=== PATIENT | male | born 1970 | race Caucasian/White ===

== ENCOUNTER 2016-09-22 08:53 | Emergency (ER) | payer OTHER ==
[~2016-09-22] VITALS: Ht 177.8 cm; Wt 93.8 kg
[~2016-09-22 08:53] MED LIST: CETITAB27 PO; CHOL1000 PO; FLM4 PO; FLUT0.0529 NAE
[2016-09-22 08:58] VITALS: TEMP 36.9; Ht 177.8 cm; Wt 93.8 kg
--- NOTE | 2016-09-22 09:30 | EMERGENCY ROOM VISIT NOTE ---
History Report prepared by Dee: Anh Barclay Under the Supervision of: Dr. Cedric Valladarse M.D. First contact with patient: 09:04 Chief Complaint: BLEEDING Stated Complaint: BLEEDING History of Present Illness The patient is a 46 year old male who presents to the Emergency Room with complaints of worsening rectal bleeding for the past week. The patient saw his PCP, Dr. Kaiser, yesterday for these symptoms and had an exam. Per patient, Dr. Kaiser was unable to determine the site of the bleeding. The patient describes the blood as red and he denies any melena. This morning, while he was standing in the shower he states that the blood was "just dripping out" and he was passing clots of blood as well. He was unable to get dressed this morning because he was bleeding so much. The patient denies rectal pain, abdominal pain , and any dizziness. Two years ago he had some rectal bleeding. He had a colonoscopy at that time which revealed polyps. The patient also reports that for the past few weeks he has had some shortness of breath and his chest has felt bloated. His PCP did an ECG and a CXR yesterday. Source of History: patient, spouse/significant other Onset: the past week Position: other (rectum) Symptom Intensity: Quality: other (bleeding) Timing: worsening Associated Symptoms: + chest pain, + SOB, + hematochezia, No abdominal pain , No melena Review of Systems All systems have been listed, reviewed, and are negative other than those previously mentioned. Please see Additional Medical History Sheet. 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[place] (4) Vitamin D deficiency Surgical Problems: (1) Hx of tonsillectomy (2) S/P hernia repair (3) S/P nasal surgery Family History No significant family history Social History Smoking Status: Never Smoker Alcohol Use: none Drug Use: none Marital Status: Housing Status: lives with significant other Occupation Status: employed Current/Historical Medications Scheduled Cetirizine/Pseudoephedrine (Zyrtec-D Er 5MG/120MG), 1 TAB PO DAILY Fluticasone Propionate (Nasal) (Flonase Allergy Relief), 2 SPRAYS ALEX DAILY Hydrocortisone Acetate (Anucort-Hc), 25 MG OR BID Potassium Citrate (Alkalinizer (Potassium Citrate ER), 1,080 MG PO BID Allergies Coded Allergies: Penicillins (Verified Allergy, Severe, ROCEPHIN OK PER DR HOLLAND, 09/22/16) HIVES had ancef 10/26/15 no reaction Dust (Unverified Allergy, Mild, UNKNOWN, 09/22/16) Cat Dander (Verified Allergy, Unknown, CATS, 09/22/16) Dog Dander (Verified Allergy, Unknown, DOGS, 09/22/16) Physical Exam Vital Signs Date Time Temp Pulse Resp B/P (MAP) Pulse Ox O2 Delivery O2 Flow Rate FiO2 09/22/16 11:10 78 121/84 97 09/22/16 09:31 88 118/79 88 133/88 93 145/91 09/22/16 08:58 36.9 97 18 130/92 96 Room Air Physical Exam GENERAL: Patient awake, alert, oriented x 3. Patient follows commands. Patient does not appear toxic. Patient is adequately hydrated and well- nourished. SKIN: No erythema, pallor, cyanosis or rash HEENT: Normal head, pupils equal, reactive to light and accommodation. Oral cavity and posterior pharynx appear normal. Neck: Without adenopathy, no neck vein distention. LUNGS: Clear to auscultation. No wheezes, no rales, no rhonchi. HEART: No murmurs. No gallops. No rubs ABDOMEN: No masses, no rebound, no hepatomegaly or splenomegaly. Small subumbilical scar from previous herniotomy. RECTAL: Small mass at the anus consistent with possible external hemorrhoid vs rectal prolapse. Rectal exam is minimally guaiac positive. EXTREMITIES: No signs of trauma or infection. NEUROLOGIC: Cranial nerves II-XII within normal limits. No gross motor sensory function deficits. Medical Decision & Procedures ER Provider Diagnostic Interpretation: Radiology results as stated below per my review and radiologist interpretation: CHEST 2 VIEWS ROUTINE HISTORY: Short of breath. COMPARISON: Chest 10/26/2015. FINDINGS: Small nodular density at the left lung base favors a nipple shadow. No pleural effusions. No pneumothorax. The heart is normal in size. No focal lung consolidations to suggest pneumonia. No evidence for pulmonary edema. IMPRESSION: No acute process. Electronically signed by: Torey Vargas M.D. 09/22/2016 10:59 AM Dictated Date/Time: 09/22/2016 10:57 AM Laboratory Results 09/22/16 09:25 Red Blood Count 5.20, Mean Corpuscular Volume 82.7, Mean Corpuscular Hemoglobin 29.8, Mean Corpuscular Hemoglobin Concent 36.0, Mean Platelet Volume 8.9, Neutrophils (%) (Auto) 61.7, Lymphocytes (%) (Auto) 27.8, Monocytes (%) (Auto) 7.2, Eosinophils (%) (Auto) 2.1, Basophils (%) (Auto) 0.5, Neutrophils # (Auto) 3.53, Lymphocytes # (Auto) 1.59, Monocytes # (Auto) 0.41, Eosinophils # (Auto) 0.12, Basophils # (Auto) 0.03 09/22/16 09:25 Test 09/22/16 09:25 White Blood Count 5.72 K/uL (4.8-10.8) Red Blood Count 5.20 M/uL (4.7-6.1) Hemoglobin 15.5 g/dL (14.0-18.0) Hematocrit 43.0 % (42-52) Mean Corpuscular Volume 82.7 fL (80-100) Mean Corpuscular Hemoglobin 29.8 pg (25-34) Mean Corpuscular Hemoglobin Concent 36.0 g/dl (32-36) Platelet Count 211 K/uL (130-400) Mean Platelet Volume 8.9 fL (7.4-10.4) Neutrophils (%) (Auto) 61.7 % Lymphocytes (%) (Auto) 27.8 % Monocytes (%) (Auto) 7.2 % Eosinophils (%) (Auto) 2.1 % Basophils (%) (Auto) 0.5 % Neutrophils # (Auto) 3.53 K/uL (1.4-6.5) Lymphocytes # (Auto) 1.59 K/uL (1.2-3.4) Monocytes # (Auto) 0.41 K/uL (0.11-0.59) Eosinophils # (Auto) 0.12 K/uL (0-0.5) Basophils # (Auto) 0.03 K/uL (0-0.2) RDW Standard Deviation 39.8 fL (36.4-46.3) RDW Coefficient of Variation 13.2 % (11.5-14.5) Immature Granulocyte % (Auto) 0.7 % Immature Granulocyte # (Auto) 0.04 K/uL (0.00-0.02) Anion Gap 8.0 mmol/L (3-11) Est Creatinine Clear Calc Drug Dose 75.0 ml/min Estimated GFR () 68.9 Estimated GFR (Non- 59.4 BUN/Creatinine Ratio 15.6 (10-20) Calcium Level 8.9 mg/dl (8.5-10.1) Total Bilirubin 0.9 mg/dl (0.2-1) Aspartate Amino Transf (AST/SGOT) 24 U/L (15-37) Alanine Aminotransferase (ALT/SGPT) 34 U/L (12-78) Alkaline Phosphatase 90 U/L (45-117) Troponin I < 0.015 ng/ml (0-0.045) Total Protein 7.0 gm/dl (6.4-8.2) Albumin 3.7 gm/dl (3.4-5.0) Globulin 3.3 gm/dl (2.5-4.0) Albumin/Globulin Ratio 1.1 (0.9-2) Laboratory results as stated above per my review. ECG Indication: chest pain Rate (beats per minute): 81 Rhythm: normal sinus Findings: no acute ischemic change, no ectopy ED Course 904: Past medical records reviewed. The patient was evaluated in room B3B. A complete history and physical examination was performed. 1046: I updated the patient on his results. He is doing well. 1125: I reassessed the patient at this time. He is feeling better and resting comfortably. I discussed the results and treatment plan with the patient and his . I answered all pertaining questions that they had. They expressed understanding and verbalized agreement. The patient will be discharged home. Medical Decision Differential diagnoses includes hemorrhoids, fissures, polyps, anemia, myocardial infarction, chest wall pain, pericarditis, myocarditis, aortic emergencies, pulmonary embolism, congestive heart failure, GI causes, and other significant cardiopulmonary disorders. The patient appears to have a small rectal prolapse versus hemorrhoid. He has minimally guaiac positive stool. Hemoglobin and hematocrit are not low. Patient remained stable. The patient has no evidence of cardiopulmonary problem. The patient will be placed on steroid suppository to help with the pressure in that area. If this does not resolve his problem he will need another colonoscopy or sigmoidoscopy. The patient is to follow-up with his family physician. Medication Reconciliation: I attest that I have personally reviewed the patient' s current medication list. Blood pressure Screening: Patient was found to have normal blood pressure on screening and does not require follow up. Impression Primary Impression: Rectal prolapse Scribe Attestation The scribe's documentation has been prepared under my direction and personally reviewed by me in its entirety. I confirm that the note above accurately reflects all work, treatment, procedures, and medical decision making performed by me. Departure Information Dispostion Home / Self-Care Prescriptions Hydrocortisone Acetate (Anucort-Hc) 25 Mg Supp 25 MG OR BID for 7 Days, #14 SUPP Prov: Cedric Valladares M.D. 09/22/16 Referrals Aman Kaiser M.D. (PCP) Forms HOME CARE DOCUMENTATION FORM, IMPORTANT VISIT INFORMATION Patient Instructions My [facility] [employer] Additional Instructions One rectal suppository twice a day for 7 days. Follow-up with your family physician within the next 7 days. Return here sooner if bleeding is getting worse.
[2016-09-22] MEDS ORDERED: POTA1080 PO (09:35)
[2016-09-22] MEDS ORDERED: FLUT0.15 NAE (09:35)
[2016-09-22 09:37] LABS: BASO % 0.5 %; BASO ABS # 0.03 K/uL (0-0.2); COMPLETE YES; EOS % 2.1 %; IG% 0.7 %; LYMPH % 27.8 %; LYMPH ABS # 1.59 K/uL (1.2-3.4); MEAN CELL VOLUME 82.7 fL (80-100); MEAN CORPUSCULAR HEMOGLOBIN 29.8 pg (25-34); MEAN PLATELET VOLUME 8.9 fL (7.4-10.4); MONO % 7.2 %; NEUT % 61.7 %; PLATELET COUNT 211 K/uL (130-400); WHITE BLOOD COUNT 5.72 K/uL (4.8-10.8)
[2016-09-22 09:57] LABS: ALT/SGPT 34 U/L (12-78); AST/SGOT 24 U/L (15-37); BLOOD UREA NITROGEN 22 mg/dl (7-18); BUN/CREATININE RATIO 15.6 (10-20); CALCIUM 8.9 mg/dl (8.5-10.1); CARBON DIOXIDE 24 mmol/L (21-32); CHLORIDE 109 mmol/L (98-107); GLUCOSE 123 mg/dl (70-99); POTASSIUM 3.9 mmol/L (3.5-5.1); SODIUM 141 mmol/L (136-145)
[2016-09-22 10:01] LABS: ALB/GLOB RATIO 1.1 (0.9-2); ALKALINE PHOSPHATASE 90 U/L (45-117)
--- NOTE | 2016-09-22 11:00 | DIAGNOSTIC IMAGING REPORT ---
CHEST 2 VIEWS ROUTINE HISTORY: Short of breath. COMPARISON: Chest 10/26/2015. FINDINGS: Small nodular density at the left lung base favors a nipple shadow. No pleural effusions. No pneumothorax. The heart is normal in size. No focal lung consolidations to suggest pneumonia. No evidence for pulmonary edema. IMPRESSION: No acute process. Electronically signed by: Torey Vargas M.D. 09/22/2016 10:59 AM Dictated Date/Time: 09/22/2016 10:57 AM
[2016-09-22 11:10] VITALS: BP 121/84; PULSE 78; O2SAT 97
[2016-09-22] MEDS ORDERED: ANSHCS PR (11:17)
== END 2016-09-22 11:43 | disposition home or self-care (01) ==
LOC: C.EDB 08:54
DX: K62.3 Rectal prolapse (principal); R07.9 Chest pain, unspecified; R06.02 Shortness of breath; E80.4 Gilbert syndrome; G61.0 Guillain-Barre syndrome; E55.9 Vitamin D deficiency, unspecified